=== PATIENT | female | born 1945 | race Caucasian/White ===

== ENCOUNTER → 2016-08-10 | Outpatient (CLI) | payer MEDICARE, BC ==
--- NOTE | ~2016-08-10 | ENPV ---
Vascular Lower Extremities DVT Study Procedure Demographics Patient Name HEYDI CHAVEZ Date of Study 08/10/2016 Patient Number [id number] Gender Female Date of 1945 Age 71 Visit Number [id number] Height Accession Number [id number] Weight Room Number BSA BMI Referring Linh Perkins Lynn Jerez MD Physician Physician Physician William Langston Page Technician Physician Jono CONTRERAS Log Chain Feeder Jay Morales T, [facility] Conclusions Summary Follow up left GSV ablation. The veins appears to be ablated off with no evidence of vascularization. Procedure Type of Study: Veins:Lower Extremities DVT Study, Lower Extremity Left. Additional Indications:Follow up ablation Appropriate Use Criteria:6 Patient Status:Routine. Study Location:Vascular Lab. Technical Quality:Adequate visualization. - Preliminary reported to:Dr. Kinney's nurse at 1430.. Velocities are measured in cm/s ; Diameters are measured in cm Left Lower Extremities DVT Study Measurements Left 2D and Doppler Measurements + + + + +------+------+ + !Location !Visualized!Compressibility!Thrombosis!Signal!Reflux!Reflux ! ! ! ! ! ! ! !(sec) ! + + + + +------+------+ + !GSV Thigh !Yes !No ! ! ! ! ! + + + + +------+------+ + !Common !Yes !Yes !None !Phasic! ! ! !Femoral ! ! ! ! ! ! ! + + + + +------+------+ + !Prox !Yes !Yes !None !Phasic! ! ! !Femoral ! ! ! ! ! ! ! + + + + +------+------+ + !Mid Femoral!Yes !Yes !None !Phasic! ! ! + + + + +------+------+ + !Dist !Yes !Yes !None !Phasic! ! ! !Femoral ! ! ! ! ! ! ! + + + + +------+------+ + !Popliteal !Yes !Yes !None !Phasic! ! ! + + + + +------+------+ + !PTV !Yes !Yes !None !Phasic! ! ! + + + + +------+------+ + !Peroneal !Yes !Yes !None !Phasic! ! ! + + + + +------+------+ + Signature dtt: FRANCISCO JAVIER HANDY: 08/10/16 1353 Physician Self Edit
== END | disposition disaster alternative care site (69) ==
LOC: GCAR 08-07 13:30
DX: Z48.89 Encounter for other specified surgical aftercare (principal); Z98.890 Other specified postprocedural states